=== PATIENT | female | born 1960 | race Two or more races ===

== ENCOUNTER → 2023-11-19 14:37 | Outpatient (REF) | payer OTHER, SELFPAY | LOC: WDC 14:37 | PROVIDERS: ATTENDING PHYSICIAN Obstetrics & Gynecology Gynecology | DX: Z12.31 Encounter for screening mammogram for malignant neoplasm of breast (principal) | CPT/HCPCS: 77063; 77067 ==

== ENCOUNTER 2024-08-26 22:11 | Emergency (ER) | payer OTHER, SELFPAY ==
[2024-08-26 22:16] VITALS: BP 135/79
[2024-08-27 01:27] VITALS: BP 128/69
[2024-08-27 01:34] VITALS: BP 128/69
--- NOTE | 2024-08-27 01:39 | ED.GENMED ---
History of Present Illness
General
Chief Complaint: Eye Problems
Source: patient
Time Seen by Provider: 08/27/24 01:24
History of Present Illness
History of Present Illness:
64-year-old female who had a history of partial retinal detachment of past has treated the right eye. States she was reading the news [place] about the TV and noticed there was a little bit of a blurry spot that moves. She then noticed flashes.
She states the whole thing lasted maybe 5 minutes or so. She now feels better but said she went to get checked out. She denies any loss of vision. No blurred vision. Currently offers no complaints.
Past History
Past History
ED Past Medical History: Other (Partial retinal detachment)
ED Past Surgical History:
Phy Exam
Physical Exam
Physical Exam:
CONSTITUTIONAL Vital signs reviewed, Patient alert and oriented to person, place and time. Well-appearing
HEAD atraumatic, normocephalic.
EYES eyelids normal to inspection, Extraocular muscles intact, Conjunctiva normal, Sclera normal. Sharp discs bilaterally. Visual villarreal normal
NECK normal range of motion, Trachea midline, no jugular venous distention.
RESP no respiratory distress
BACK No obvious deformities
UPPER EXTREMITY Gross Range of motion normal, gross motor strength normal
LOWER EXTREMITY Gross range of motion normal, Gross motor strength normal
NEURO Speech normal, No focal motor deficits include, [place] coma scale 15, Memory normal, Cranial Nerves intact to screening exam.
SKIN Skin warm, dry, and normal in color.
PSYCHIATRIC Patient oriented to person place and time, Normal affect.
Course
Vital Signs
Initial and Last Documented VS:
Initial Vital Signs
Temp Pulse Resp BP Pulse Ox
98.2 F 74 20 135/79 99
08/26/24 22:16 08/26/24 22:16 08/26/24 22:16 08/26/24 22:16 08/26/24 22:16
Last Documented Vital Signs
Temp Pulse Resp BP Pulse Ox
98.2 F 70 15 128/69 100
08/26/24 22:16 08/27/24 01:34 08/27/24 01:34 08/27/24 01:34 08/27/24 01:34
MDM/Problems Addressed
Differential Diagnosis Includes:
Retinal detachment, floaters, vitreous hemorrhage
MDM/Problems Addressed:
Vision changes
*Pulse Oximetry
Patient hypoxic: no
*Critical Care Note
Total Time (30-74mins, 75-104mins- exclusive of procedures): Not Applicable
Data Reviewed
Source: patient and spouse
Patient Management
Escalation/DeEscalation of care consider admission/obs:
Visual acuity okay. Visual villarreal normal. No further symptoms. Will refer to outpatient ophthalmology follow-up.
ED Attending Note
-
Portions of this chart may have been created with voice recognition software.� Occasional wrong word or��sound alike� substitutions may have occurred due to the inherent limitations of voice recognition software.
Discharge Plan
Departure
Patient Disposition: Home (Routine Discharge)
Date of Disposition: 08/27/24
Time of Disposition: 01:39
Patient with high blood pressure during this ER visit?: No
Discharge Problem:
Vision changes
Referrals:
NONE,* [Family Provider] -
lC Kelley MD [Active] -
Activity Restrictions/Additional Instructions:
Vision changes
Please see ophthalmology next 3 to 5 days for detailed retinal exam and follow-up. Return immediately for any loss of vision, persistent floaters or flashes, or any other concerns.
Interventions
Interventions:
*General Assessment Last Done: 08/26/24 22:16
Discharge Date and Time
Print Language: FAROESE
== END 2024-08-27 01:53 | disposition home or self-care (01) ==
LOC: EMR 22:11
PROVIDERS: EMERGENCY PHYSICIAN Emergency Medicine
DX: H53.8 Other visual disturbances (principal)
CPT/HCPCS: 99282

== ENCOUNTER → 2025-01-10 12:34 | Outpatient (REF) | payer OTHER, SELFPAY | LOC: WDC 12:34 | PROVIDERS: ATTENDING PHYSICIAN Obstetrics & Gynecology Gynecology; FAMILY PHYSICIAN Family Medicine | DX: Z12.31 Encounter for screening mammogram for malignant neoplasm of breast (principal); Z78.0 Asymptomatic menopausal state | CPT/HCPCS: 77063; 77067; 77080 ==

== ENCOUNTER → 2025-01-30 09:23 | Outpatient (REF) | payer OTHER, SELFPAY | LOC: WDC 09:23 | PROVIDERS: ATTENDING PHYSICIAN Obstetrics & Gynecology Gynecology; FAMILY PHYSICIAN Family Medicine | DX: R92.8 Other abnormal and inconclusive findings on diagnostic imaging of breast (principal) | CPT/HCPCS: 76642 ==

== ENCOUNTER → 2025-02-09 06:37 | Outpatient (REF) | payer OTHER, SELFPAY ==
--- NOTE | 2025-02-09 09:15 | OID.BR.INTR ---
DENICED Breast Navigator - Initial
- -
Date of Contact: 02/09/25
Met with patient. Patient given written information on navigator service available at [facility]. Will follow up as needed per protocol.
== END ==
LOC: WDC 06:37
PROVIDERS: ATTENDING PHYSICIAN Obstetrics & Gynecology Gynecology; FAMILY PHYSICIAN Family Medicine
DX: R92.8 Other abnormal and inconclusive findings on diagnostic imaging of breast (principal); N64.59 Other signs and symptoms in breast
CPT/HCPCS: 19081; 76098; 88305; A4648